=== PATIENT | male | born 1945 | race Caucasian/White ===

== ENCOUNTER 2017-06-04 07:06 | Day surgery (SDC) | payer MEDICARE ==
[~2017-06-04] VITALS: Ht 195.6 cm; Wt 86.8 kg
[~2017-06-04 07:06] MED LIST: 1-ME1LIQ PO; ASPI81TA82 PO; SIMV20 PO
[2017-06-04 07:34] VITALS: BP 162/95; PULSE 66; RESP 20; TEMP 98.1; O2SAT 97
[2017-06-04] MEDS ORDERED: SIMV20TA PO (07:35)
[2017-06-04] MEDS ORDERED: OMEP20TA PO (07:35)
[2017-06-04] MEDS ORDERED: GABA300C5 PO (07:35)
[2017-06-04] MEDS ORDERED: ASPI81CH CHEW (07:35)
[2017-06-04] MEDS ORDERED: HYDR-755 PO (07:35)
[2017-06-04 08:23] LABS: AUTOMATED NEUTROPHIL # 4.3 TH/MM3 (1.8-7.7); BASOPHIL % 0.4 % (0.0-2.0); EOSINOPHIL # 0.1 TH/MM3 (0-0.4); EOSINOPHIL % 1.8 % (0.0-4.0); HEMATOCRIT 44.4 % (39.0-51.0); HEMO FLAGS DIFF FINAL; LYMPH % 16.4 % (9.0-44.0); LYMPHOCYTE # 0.9 TH/MM3 (1.0-4.8); MEAN CELL VOLUME 92.6 FL (80.0-100.0); MEAN CORPUSCULAR HEMOGLOBIN 31.5 PG (27.0-34.0); MONO % 5.1 % (0.0-8.0); NEUT % 76.3 % (16.0-70.0); PLATELET COUNT 114 TH/MM3 (150-450); RED BLOOD COUNT 4.79 MIL/MM3 (4.50-5.90); RED CELL DISTRIBUTION WIDTH 13.8 % (11.6-17.2); WHITE BLOOD COUNT 5.6 TH/MM3 (4.0-11.0)
[2017-06-04 08:27] LABS: APTT (PATIENT) 28.1 SEC (24.3-30.1); PROTHROMBIN TIME - PATIENT 11.1 SEC (9.8-11.6)
[2017-06-04 08:44] LABS: BICARBONATE 27.7 MEQ/L (21.0-32.0); POTASSIUM 4.6 MEQ/L (3.5-5.1)
--- NOTE | 2017-06-04 09:31 | PD.RAD ---
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
[2017-06-04 09:35] VITALS: BP 137/66; PULSE 57; RESP 20; TEMP 98; O2SAT 95
[2017-06-04 10:54] LABS: CSF LYMPHOCYTES 100 %; CSF NEUTROPHILS 0 %; GROSS BLOOD TUBE #2 0 (0); GROSS BLOOD TUBE #3 0 (0); GROSS BLOOD TUBE #4 TRACE (0); SUPERNATE COLOR TUBE #2 CLEAR (CLEAR); SUPERNATE COLOR TUBE #3 CLEAR (CLEAR); SUPERNATE COLOR TUBE #4 CLEAR (CLEAR); WBC TUBE #1 18 /MM3 (0-10)
[2017-06-04 10:58] LABS: GROSS BLOOD TUBE #1 0 (0); SUPERNATE COLOR TUBE #1 CLEAR (CLEAR)
[2017-06-04 11:33] VITALS: BP 145/68; PULSE 60; RESP 18; O2SAT 96
--- NOTE | 2017-06-04 12:16 | RADRPT ---
EXAM DATE/TIME: 06/04/2017 09:00 [facility] COMPARISON: No previous studies available for comparison. INDICATIONS : Patient presents with blurred vision, dizziness in need of lumbar puncture. MEDICAL HISTORY : Stomach cancer Bladder cancer CAD Hepatitis Kidney stones High Cholesterol SURGICAL HISTORY : Partial Gasterctomy Cystoscopy ENCOUNTER: Initial ACUITY: 1 week PAIN SCORE: 0/10 LOCATION: N/A LUMBAR PUNCTURE TIME: 0920 hours FLUORO TIME: 1.5 minutes IMAGE SERIES: 1 ACCESS LEVEL: L3-4 FLUID: 17 cc of clear CSF was collected and sent to the laboratory for analysis. PROCEDURE : 1. Fluoroscopic guided lumbar puncture. The risks, benefits and alternatives to the procedure were explained and verbal and written consent w as obtained. The site was prepped in sterile fashion. Full sterile technique was used, including ca p, mask, sterile gloves and gown and a large sterile sheet. Hand hygiene and 2% chlorhexidine and/or betadine/alcohol prep was utilized per protocol for cutaneous antisepsis. The skin and subcutaneous tissues were infiltrated with local anesthetic solution. With fluoroscopic guidance the lumbar thecal sac was punctured at the level above. The fluid describ ed above was removed without difficulty. The patient tolerated the procedure well and there were no complications. CONCLUSION: Uncomplicated fluoroscopically guided lumbar puncture. Keyon Perry MD on June 04, 2017 at 12:14 Board Certified Radiologist. This report was verified electronically.
[2017-06-05 10:22] LABS: HSV 1,PCR Negative (Negative)
[2017-06-07 23:53] LABS: VZV PCR RESULT <500 (<500 copies)
[2017-06-08 17:52] LABS: CALIFORNIA ENCEPH AB IGG <1:4 (<1:4); CALIFORNIA ENCEPH AB IGM <1:4 (<1:4); EAST EQUINE ENCEPH AB IGG <1:4 (<1:4); EAST EQUINE ENCEPH AB IGM <1:4 (<1:4); ST LOUIS ENCEPH AB IGG <1:4 (<1:4); ST LOUIS ENCEPH AB IGM <1:4 (<1:4)
== END 2017-06-04 11:40 | disposition home or self-care (01) ==
LOC: HROP 07:06 → HRIP 07:07 → HROP 11:40
PROVIDERS: ATTEND Psychiatry & Neurology Neurology
DX: H53.16 Psychophysical visual disturbances (principal); H53.8 Other visual disturbances; R42 Dizziness and giddiness; G62.9 Polyneuropathy, unspecified; I25.10 Atherosclerotic heart disease of native coronary artery without angina pectoris; K75.9 Inflammatory liver disease, unspecified; E78.00 Pure hypercholesterolemia, unspecified; Z85.028 Personal history of other malignant neoplasm of stomach; Z85.51 Personal history of malignant neoplasm of bladder; Z87.442 Personal history of urinary calculi
CPT/HCPCS: 62270; 77003; 80048; 82945; 84157; 85025; 85610; 85730; 86651; 86652; 86653; 86654; 87070; 87102; 87205; 87206; 87497; 87529; 87799; 89051